=== PATIENT | male | born 1950 | race Caucasian/White ===

== ENCOUNTER 2018-11-13 16:00 | Emergency (ER) | payer OTHER, BC ==
[2018-11-13] MEDS ORDERED: Sodium Chloride 0.9% 1000 ML 1,000 ML IV STA (16:26)
[2018-11-13] MEDS ORDERED: Sodium Chloride 0.9% 1000 ML 1,000 ML ONE (16:30)
--- NOTE | 2018-11-13 16:31 | ERPHSYRPT ---
- History of Present Illness Time Seen by Provider: 11/13/18 16:28 Source: patient Exam Limitations: no limitations Physician History: This is a 68-year-old white male with history of arthritis, kidney stones Patient states that he had a strep infection approximately one week ago he states it took some time for a get antibiotics going. He states that yesterday he had a dark yellow urine today he is having a dark purple urine with blood in his urine. He has some mild pain in his posterior kidneys described as a dull ache. He denies any injury. He has not had any fevers. Past medical history includes arthritis, kidney stones Past surgical history includes hernia repair, bilateral knee arthroscopic, bilateral shoulder surgery, right hand and elbow surgery. Timing/Duration: yesterday Severity: moderate Modifying Factors: Improves With: nothing Associated Symptoms: other (hematuria and bilateral flank pain), No nausea, No vomiting, No abdominal pain, No shortness of breath, No heartburn, No diaphoresis, No cough, No chills, No chest pain, No fever, No headaches, No loss of appetite, No malaise, No rash, No syncope, No seizure, No weakness Allergies/Adverse Reactions: No Known Drug Allergies Allergy (Unverified 10/23/12 21:23) Home Medications: No Home Meds 10/23/12 [History] Hx Tetanus, Diphtheria Vaccination/Date Given: No (PT UNSURE) Hx Influenza Vaccination/Date Given: Yes (2010) Hx Pneumococcal Vaccination/Date Given: No - Review of Systems Constitutional: No Fever, No Chills Eyes: No Symptoms Ears, Nose, & Throat: No Symptoms Respiratory: No Cough, No Dyspnea Cardiac: No Chest Pain, No Edema, No Syncope Abdominal/Gastrointestinal: No Abdominal Pain, No Nausea, No Vomiting, No Diarrhea Genitourinary Symptoms: Hematuria, Flank Pain (Bilateral flank pain), No Dysuria , No Frequency, No Hesitancy, No Incontinence, No Urgency, No Urinary Retention , No Testicle Pain, No Penile Discharge Musculoskeletal: No Back Pain, No Neck Pain Skin: No Symptoms, No Rash Neurological: No Dizziness, No Focal Weakness, No Sensory Changes Psychological: No Symptoms Endocrine: No Symptoms All Other Systems: Reviewed and Negative - Past Medical History Pertinent Past Medical History: Yes Musculoskeletal History: Arthritis - Past Surgical History Past Surgical History: Yes Gastrointestinal: Hernia Repair Musculoskeletal: Orthopedic Surgery Other Surgical History: SHOULDER, BILATERAL KNEES - Social History Smoking Status: Never smoker Exposure to second hand smoke: No Drug Use: none Patient Lives Alone: No - Nursing Vital Signs Nursing Vital Signs: Initial Vital Signs Temperature 98.2 F 11/13/18 16:09 Pulse Rate 84 11/13/18 16:09 Respiratory Rate 18 11/13/18 16:09 Blood Pressure 158/80 11/13/18 16:09 O2 Sat by Pulse Oximetry 96 11/13/18 16:09 Pain Scale Pain Intensity 0 - Physical Exam General Appearance: no apparent distress, alert Eye Exam: PERRL/EOMI, eyes nml inspection Ears, Nose, Throat Exam: normal ENT inspection, TMs normal, pharynx normal, moist mucous membranes Neck Exam: normal inspection, non-tender, supple, full range of motion Respiratory Exam: normal breath sounds, lungs clear, No respiratory distress Cardiovascular Exam: regular rate/rhythm, normal heart sounds, normal peripheral pulses Gastrointestinal/Abdomen Exam: soft, normal bowel sounds, No tenderness, No mass Back Exam: CVA tenderness (mild bilateral flank tenderness) Extremity Exam: normal inspection, normal range of motion, pelvis stable Neurologic Exam: alert, oriented x 3, cooperative, 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 Stable small hiatal hernia . Small fatty umbilical hernia. And enlarged prostate. Remaining abdomen/pelvis negative.) Ordered Tests: Active Orders 24 hr Category Date Time Status IV Insertion STAT Care 11/13/18 16:20 Active ABDOMEN AND PELVIS W/0 CONTRAS [CT] Stat Exams 11/13/18 16:36 Taken CBC W DIFF Stat Lab 11/13/18 16:30 Completed CMP Stat Lab 11/13/18 16:30 Completed CULTURE,URINE Stat Lab 11/13/18 17:08 Received Manual Differential NC Stat Lab 11/13/18 16:30 Completed PROTIME WITH INR Stat Lab 11/13/18 16:30 Completed PTT Stat Lab 11/13/18 16:30 Completed UA W/RFX UR CULTURE Stat Lab 11/13/18 17:08 Completed Medication Summary Discontinued Medications Generic Name Dose Route Start Last Admin Trade Name Molly PRN Reason Stop Dose Admin Sodium Chloride 1,000 mls @ 999 mls/hr 11/13/18 16:26 11/13/18 16:34 Sodium Chloride 0.9% 1000 Ml IV 11/13/18 17:26 999 mls/hr .Q1H1M STA Administration Sodium Chloride Confirm 11/13/18 16:30 Sodium Chloride 0.9% 1000 Ml Administered 11/13/18 16:31 Dose 1,000 mls @ ud .ROUTE .STK-MED ONE Lab/Rad Data: Laboratory Result Diagrams 11/13/18 16:30 11/13/18 16:30 Laboratory Results 11/13/18 11/13/18 11/13/18 Range/Units 17:08 16:45 16:30 WBC (4.0-10.5) K/mm3 RBC (4.1-5.6) M/mm3 Hgb (12.5-18.0) gm/dl Hct (42-50) % MCV (78-100) fl MCH (26-32) pg MCHC (32-36) g/dl RDW (11.5-14.0) % Plt Count (150-450) K/mm3 MPV (6-9.5) fl Segmented Neutrophils (36.-66.) % Band Neutrophils (0.0-2.0) % Lymphocytes (Manual) (24-44) % Monocytes (Manual) (0.0-12.0) % Platelet Estimate (NORMAL) RBC Morphology PT 12.9 H (8.83-12.87) SECONDS INR 1.11 (0.8-3.0) APTT 25.8 (24.1-36.1) SECONDS Sodium (137-145) mmol/L Potassium (3.5-5.1) mmol/L Chloride (98-107) mmol/L Carbon Dioxide (22-30) mmol/L Anion Gap (5-15) MEQ/L BUN (9-20) mg/dL Creatinine (0.66-1.25) mg/dL Estimated GFR ML/MIN Glucose (74-106) mg/dL Calcium (8.4-10.2) mg/dL Total Bilirubin (0.2-1.3) mg/dL AST (17-59) U/L ALT (0-50) U/L Alkaline Phosphatase (38-126) U/L Serum Total Protein (6.3-8.2) g/dL Albumin (3.5-5.0) g/dL Urine Color YELLOW (YELLOW) Urine Appearance CLEAR (CLEAR) Urine pH 7.0 (5-6) Ur Specific [place] 1.009 (1.005-1.025) Urine Protein 30 (Negative) Urine Ketones NEGATIVE (NEGATIVE) Urine Blood LARGE (0-5) Jose G/ul Urine Nitrite NEGATIVE (NEGATIVE) Urine Bilirubin NEGATIVE (NEGATIVE) Urine Urobilinogen NEGATIVE (0-1) mg/dL Ur Leukocyte Esterase NEGATIVE (NEGATIVE) Urine WBC (Auto) 26-50 (0-5) /HPF Urine RBC (Auto) >101 (0-2) /HPF U Epithel Cells (Auto) NONE (FEW) /HPF Urine Bacteria (Auto) RARE (NEGATIVE) /HPF Urine Culture Reflexed YES (NO) Urine Glucose NEGATIVE (NEGATIVE) mg/dL Group A Strep Antibody NEGATIVE (NEGATIVE) 11/13/18 11/13/18 Range/Units 16:30 16:30 WBC 8.8 (4.0-10.5) K/mm3 RBC 4.22 (4.1-5.6) M/mm3 Hgb 13.2 (12.5-18.0) gm/dl Hct 40.7 L (42-50) % MCV 96.4 (78-100) fl MCH 31.3 (26-32) pg MCHC 32.4 (32-36) g/dl RDW 13.3 (11.5-14.0) % Plt Count 264 (150-450) K/mm3 MPV 9.9 H (6-9.5) fl Segmented Neutrophils 59 (36.-66.) % Band Neutrophils 9 H (0.0-2.0) % Lymphocytes (Manual) 28 (24-44) % Monocytes (Manual) 4 (0.0-12.0) % Platelet Estimate NORMAL (NORMAL) RBC Morphology NORMAL PT (8.83-12.87) SECONDS INR (0.8-3.0) APTT (24.1-36.1) SECONDS Sodium 145 (137-145) mmol/L Potassium 4.3 (3.5-5.1) mmol/L Chloride 103 (98-107) mmol/L Carbon Dioxide 32 H (22-30) mmol/L Anion Gap 14.1 (5-15) MEQ/L BUN 17 (9-20) mg/dL Creatinine 1.16 (0.66-1.25) mg/dL Estimated GFR > 60.0 ML/MIN Glucose 113 H (74-106) mg/dL Calcium 9.1 (8.4-10.2) mg/dL Total Bilirubin 0.50 (0.2-1.3) mg/dL AST 25 (17-59) U/L ALT 23 (0-50) U/L Alkaline Phosphatase 84 (38-126) U/L Serum Total Protein 7.9 (6.3-8.2) g/dL Albumin 4.1 (3.5-5.0) g/dL Urine Color (YELLOW) Urine Appearance (CLEAR) Urine pH (5-6) Ur Specific [place] (1.005-1.025) Urine Protein (Negative) Urine Ketones (NEGATIVE) Urine Blood (0-5) Jose G/ul Urine Nitrite (NEGATIVE) Urine Bilirubin (NEGATIVE) Urine Urobilinogen (0-1) mg/dL Ur Leukocyte Esterase (NEGATIVE) Urine WBC (Auto) (0-5) /HPF Urine RBC (Auto) (0-2) /HPF U Epithel Cells (Auto) (FEW) /HPF Urine Bacteria (Auto) (NEGATIVE) /HPF Urine Culture Reflexed (NO) Urine Glucose (NEGATIVE) mg/dL Group A Strep Antibody (NEGATIVE) - Progress Progress: improved Progress Note: 11/13/18 17:39 68-year-old white male with history of arthritis, kidney stones Patient states he had strep a week ago. He states that yesterday he noticed blood in his urine. He states he has some bilateral flank pain no nausea no vomiting. He has had some dysuria. Patient with a CT remarkable for mild diffuse fecal stasis, stable small hiatal hernia, small fatty umbilical hernia, and enlarged prostate remaining abdomen/ pelvis is negative patient's group a strep is negative Patient's CBC white blood cell 8.8 hemoglobin 13.2 hematocrit 40.7 platelets 264 Patient's chemistries sodium 145 potassium 4.3 chloride 103 bicarbonate 32 BUN 17 creatinine 1.16 glucose 113 GFR is greater than 60 Patient's urine specific gravity 1.009 pH 7.0 protein 30 (1+) Large amount of blood patient's urine is yellow Patient with 26-50 white cells per high-power field and greater than 101 red cells per high-power field. Impression hematuria UTI. Plan. Bactrim DS one orally twice a day for 10 days. Plenty of fluids. Tylenol as needed for pain. Follow-up with patient's family doctor he states he has an appointment on 19 November, sooner if problems or worsening of condition. Return for acute distress or severe symptoms or for any problems. - Departure Time of Disposition: 17:42 Departure Disposition: Home Clinical Impression: history of recent strep infection UTI (urinary tract infection) Qualifiers: Urinary tract infection type: site unspecified Hematuria presence: with hematuria Qualified Code(s): N39.0 - Urinary tract infection, site not specified ; R31.9 - Hematuria, unspecified Condition: Fair Critical Care Time: No Referrals: BRAEDEN ROSENBAUM [NON-STAFF PHY W/O PRIVILEGES] - Instructions: Blood in the Urine (Hematuria) in Adults Additional Instructions: Return home. Plenty of fluids. Tylenol every 4 hours as needed for pain. Bactrim DS as prescribed. Follow-up with your family doctor as previously arranged sooner if problems. Return for acute distress, severe symptoms, or for any problems. Prescriptions: Smz/Tmp Ds Tablet [Bactrim Ds Tablet] 1 tab PO Q12H #20 tablet
[2018-11-13 16:43] LABS: Hematocrit 40.7 % (42-50); Hemoglobin 13.2 gm/dl (12.5-18.0); Mean Cell Volume 96.4 fl (78-100); Mean Corpuscular Hemoglobin 31.3 pg (26-32); Mean Corpuscular Hgb Concent. 32.4 g/dl (32-36); Mean Platelet Volume 9.9 fl (6-9.5); Platelet Count 264 K/mm3 (150-450); Red Blood Count 4.22 M/mm3 (4.1-5.6); Red Cell Distribution Width 13.3 % (11.5-14.0); White Blood Count 8.8 K/mm3 (4.0-10.5)
[2018-11-13 17:00] LABS: INR 1.11 (0.8-3.0); PROTIME 12.9 SECONDS (8.83-12.87)
[2018-11-13 17:02] LABS: PTT 25.8 SECONDS (24.1-36.1)
[2018-11-13 17:05] LABS: ALBUMIN 4.1 g/dL (3.5-5.0); ALKALINE PHOSPHATASE 84 U/L (38-126); ANION GAP 14.1 MEQ/L (5-15); BLOOD UREA NITROGEN 17 mg/dL (9-20); CHLORIDE 103 mmol/L (98-107); Calcium 9.1 mg/dL (8.4-10.2); Carbon Dioxide 32 mmol/L (22-30); Creatinine 1 1.16 mg/dL (0.66-1.25); Glucose 113 mg/dL (74-106); Potassium 4.3 mmol/L (3.5-5.1); SGOT/AST 25 U/L (17-59); SGPT/ALT 23 U/L (0-50); SODIUM 145 mmol/L (137-145); Total Protein 7.9 g/dL (6.3-8.2)
[2018-11-13 17:06] LABS: BAND 9 % (0.0-2.0); Lymphocytes 28 % (24-44); Monocyte 4 % (0.0-12.0); Neutrophils 59 % (36.-66.); Total Cells Counted 100
[2018-11-13 17:07] LABS: Platelet Estimate NORMAL (NORMAL)
[2018-11-13 17:24] LABS: Appearance CLEAR (CLEAR); Bacteria RARE /HPF (NEGATIVE); Bilirubin NEGATIVE (NEGATIVE); Blood LARGE Ery/ul (0-5); Glucose NEGATIVE (NEGATIVE); Ketones NEGATIVE (NEGATIVE); Leukocyte Esterase NEGATIVE (NEGATIVE); Nitrite NEGATIVE (NEGATIVE); Protein,Urine Dip 30 (Negative); Specific Gravity 1.009 (1.005-1.025); Urobilinogen NEGATIVE mg/dL (0-1); WBC 26-50 /HPF (0-5)
[2018-11-13 17:25] LABS: RBC >101 /HPF (0-2)
[2018-11-13 17:56] VITALS: BP 113/69; PULSE 72; O2SAT 98
--- NOTE | 2018-11-14 09:03 | XRAY ---
Indication: Pelvic pain. Hematuria. Burning with urination. Multiple contiguous axial images obtained through the abdomen and pelvis without contrast as ordered. Comparison: October 23, 2012. Lung bases demonstrate stable tiny left base calcified granuloma. No infiltrate or effusion. Heart is not enlarged. Stable small hiatal hernia. Noncontrasted stomach and bowel loops appear nonobstructed. Mild diffuse scattered colonic fecal debris throughout including rectum. No free fluid/air. Gallbladder contracted without gallstones. Stable enlarged prostate gland. Remaining liver, gallbladder, pancreas, spleen, adrenal glands, kidneys, ureters, and bladder appear unremarkable for noncontrast exam. Mild scattered aortoiliac calcifications without AAA. Osseous structures intact with progressive worsening moderate multilevel thoracolumbar degenerative spondylosis. Stable minimal grade 1 L4 spondylolisthesis. Stable small fatty umbilical hernia. Impression: 1. Mild fecal stasis without obstruction. 2. Stable small hiatal hernia, enlarged prostate gland, small fatty umbilical hernia, and grade 1 L4 spondylolisthesis. 3. No new or acute intra-abdominal/pelvic abnormalities on this noncontrast exam. CTDI 27.56
== END 2018-11-13 18:00 | disposition home or self-care (01) ==
LOC: ED 16:00
DX: R31.9 Hematuria, unspecified (principal); N39.0 Urinary tract infection, site not specified; M19.90 Unspecified osteoarthritis, unspecified site; Z87.442 Personal history of urinary calculi
CPT/HCPCS: 36000; 36415; 74176; 80053; 81001; 85025; 85610; 85730; 87077; 87086; 87186; 87651; 96360; 99284

== ENCOUNTER 2022-08-17 14:52 | Emergency (ER) | payer OTHER ==
--- NOTE | 2022-08-17 14:53 | ERPHSYRPT ---
- History of Present Illness Time Seen by Provider: 08/17/22 14:53 Source: patient Exam Limitations: no limitations Physician History: This is an active 71-year-old white male who approximately 8:00 this morning had relatively sudden onset of right flank pain that has worsened and intensified throughout the day. In the distant past he has had a ureteral stone and this feels similar. He has no chest pain. He has no shortness of breath. He said no nausea vomiting or diarrhea. He said no fever. He denies cough. He did notice that his urine is dark. He does have some prostate issues. He did not fall or injure his back acutely. Timing/Duration: today Method of Injury: other (No injury) Quality: sharp, stabbing Severity of Pain-Max: moderate Severity of Pain-Current: moderate Associated Symptoms: lower back pain, No urinary incontinence, No loss of bowel control, No constipation, No problems urinating, No numbness in legs/feet Previous symptoms: same symptoms as today (Distant past), no recent treatment Allergies/Adverse Reactions: No Known Drug Allergies Allergy (Verified 11/13/18 17:45) Hx Tetanus, Diphtheria Vaccination/Date Given: No (PT UNSURE) Hx Influenza Vaccination/Date Given: Yes (2010) Hx Pneumococcal Vaccination/Date Given: No Travel Risk - International Travel Have you traveled outside of the country in past 3 weeks: No - Coronavirus Screening Are you exhibiting any of the following symptoms?: No Close contact with a COVID-19 positive Pt in past 14-21 Days: No - Review of Systems Constitutional: No Symptoms Eyes: No Symptoms Ears, Nose, & Throat: No Symptoms Respiratory: No Symptoms Cardiac: No Symptoms Abdominal/Gastrointestinal: No Symptoms Genitourinary Symptoms: Hematuria, Flank Pain (Right flank pain), No Dysuria Musculoskeletal: No Symptoms Skin: No Symptoms Neurological: No Symptoms Psychological: No Symptoms Endocrine: No Symptoms Hematologic/Lymphatic: No Symptoms Immunological/Allergic: No Symptoms All Other Systems: Reviewed and Negative - Past Medical History Pertinent Past Medical History: Yes Musculoskeletal History: Arthritis Male Reproductive Disorders: Prostate Problems - Past Surgical History Past Surgical History: Yes Gastrointestinal: Hernia Repair Musculoskeletal: Orthopedic Surgery Other Surgical History: SHOULDER, BILATERAL KNEES - Social History Smoking Status: Never smoker Exposure to second hand smoke: No Drug Use: none Patient Lives Alone: No - Nursing Vital Signs Nursing Vital Signs: Initial Vital Signs Temperature 97.6 F 08/17/22 14:56 Pulse Rate 62 08/17/22 14:56 Respiratory Rate 20 08/17/22 14:56 Blood Pressure 173/83 08/17/22 14:56 O2 Sat by Pulse Oximetry 98 08/17/22 14:56 Pain Scale Pain Intensity 2 - Physical Exam General Appearance: mild distress, alert, anxiety Eye Exam: PERRL/EOMI, eyes nml inspection Ears, Nose, Throat Exam: normal ENT inspection, moist mucous membranes Neck Exam: normal inspection, non-tender, supple, full range of motion Respiratory Exam: normal breath sounds, lungs clear, airway intact, No chest tenderness, No respiratory distress Cardiovascular Exam: regular rate/rhythm, normal heart sounds, normal peripheral pulses Gastrointestinal Exam: soft, normal bowel sounds, No tenderness Rectal Exam: not done Back Exam: normal inspection, normal range of motion, CVA tenderness (Right), No vertebral tenderness Extremity Exam: normal inspection, normal range of motion, pelvis stable Neurologic Exam: alert, oriented x 3, cooperative, 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, normal mood/affect, nml cerebellar function, nml station & gait, sensation nml Skin Exam: normal color, warm, dry Lymphatic Exam: No adenopathy SpO2 Interpretation: normal O2 Delivery: Room Air - Course Nursing assessment & vital signs reviewed: Yes Ordered Tests: Active Orders 24 hr Category Date Time Status IV Insertion STAT Care 08/17/22 15:07 Active ABDOMEN AND PELVIS W/0 CONTRAS [CT] Stat Exams 08/17/22 15:07 Taken AMYLASE Stat Lab 08/17/22 15:07 Completed CBC W DIFF Stat Lab 08/17/22 15:07 Completed CMP Stat Lab 08/17/22 15:07 Completed CULTURE,URINE Stat Lab 08/17/22 15:08 Received LIPASE Stat Lab 08/17/22 15:07 Completed UA W/RFX CULTURE Stat Lab 08/17/22 15:08 Completed Medication Summary Discontinued Medications Generic Name Dose Route Start Last Admin Trade Name Freq PRN Reason Stop Dose Admin Hydromorphone HCl 1 mg 08/17/22 15:07 08/17/22 15:27 Hydromorphone 1 Mg/1ml Inj 1 Mg/Ml Syringe IV 08/17/22 15:08 1 mg STAT ONE Administration Hydromorphone HCl Confirm 08/17/22 15:21 Hydromorphone 1 Mg/1ml Inj 1 Mg/Ml Syringe Administered 08/17/22: Dose 1 mg .ROUTE .STK-MED ONE Sodium Chloride 1,000 mls @ 999 mls/hr 08/17/22 15:07 08/17/22 16:51 Sodium Chloride 0.9% 1000 Ml IV 08/17/22 16:07 Infused .Q1H1M STA Infusion Sodium Chloride Confirm 08/17/22 15:21 Sodium Chloride 0.9% 1000 Ml Administered 08/17/22 15:22 Dose 1,000 mls @ ud .ROUTE .STK-MED ONE Ketorolac Tromethamine 30 mg 08/17/22 15:07 08/17/22 15:26 Ketorolac Tromethamine 30 Mg/Ml Inj IV 08/17/22 15:08 30 mg STAT ONE Administration Ketorolac Tromethamine Confirm 08/17/22 15:20 Ketorolac Tromethamine 30 Mg/Ml Inj Administered 08/17/22 15:21 Dose 30 mg .ROUTE .STK-MED ONE Ondansetron HCl 4 mg 08/17/22 15:07 08/17/22 15:26 Ondansetron Hcl 4 Mg/2 Ml Vial IV 08/17/22 15:08 4 mg STAT ONE Administration Ondansetron HCl Confirm 08/17/22 15:20 Ondansetron Hcl 4 Mg/2 Ml Vial Administered 08/17/22 15:21 Dose 4 mg .ROUTE .STK-MED ONE Lab/Rad Data: Laboratory Result Diagrams 08/17/22 15:07 08/17/22 15:07 Laboratory Results 08/17/22 08/17/22 08/17/22 Range/Units 15:08 15:07 15:07 WBC 9.2 (4.0-10.5) x10^3/uL RBC 4.50 (4.1-5.6) x10^6/uL Hgb 14.1 (12.5-18.0) g/dL Hct 44.2 (42-50) % MCV 98.2 (78-100) fL MCH 31.3 (26-32) pg MCHC 31.9 L (32-36) g/dL RDW 12.5 (11.5-14.0) % Plt Count 232 (150-450) x10^3/uL MPV 10.8 (7.5-11.0) fL Gran % 85.9 H (36.0-66.0) % Immature Gran % (Auto) 0.2 (0.00-0.4) % Nucleat RBC Rel Count 0.0 (0.00-0.1) % Eos # (Auto) 0.02 (0-0.5) x10^3/uL Immature Gran # (Auto) 0.02 (0.00-0.03) x10^3u/L Absolute Lymphs (auto) 0.76 L (1.0-4.6) x10^3/uL Absolute Monos (auto) 0.48 (0.0-1.3) x10^3/uL Absolute Nucleated RBC 0.00 (0.00-0.01) x10^3u/L Lymphocytes % 8.2 L (24.0-44.0) % Monocytes % 5.2 (0.0-12.0) % Eosinophils % 0.2 (0.00-5.0) % Basophils % 0.3 (0.0-0.4) % Absolute Granulocytes 7.93 H (1.4-6.9) x10^3/uL Basophils # 0.03 (0-0.4) x10^3/uL Sodium 142 (137-145) mmol/L Potassium 3.9 (3.5-5.1) mmol/L Chloride 109 H (98-107) mmol/L Carbon Dioxide 29 (22-30) mmol/L Anion Gap 7.6 (5-15) MEQ/L BUN 16 (9-20) mg/dL Creatinine 0.79 (0.66-1.25) mg/dL Estimated GFR > 60.0 ML/MIN Glucose 160 H (74-106) mg/dL Calcium 8.7 (8.4-10.2) mg/dL Total Bilirubin 0.50 (0.2-1.3) mg/dL AST 25 (17-59) U/L ALT 19 (0-50) U/L Alkaline Phosphatase 103 (38-126) U/L Serum Total Protein 6.9 (6.3-8.2) g/dL Albumin 4.1 (3.5-5.0) g/dL Amylase 59 (30-110) U/L Lipase 42 (23-300) U/L Urinalys Dipstick Clnc MAIN LAB Urine Color BROWN (YELLOW) Urine Appearance CLOUDY (CLEAR) Urine pH 5.5 (5-6) Ur Specific [place] >=1.030 (1.005-1.025) POC Urine Protein Conf 100 (Negative) Urine Ketones NEGATIVE (NEGATIVE) Urine Nitrite NEGATIVE (NEGATIVE) Urine Bilirubin SMALL (NEGATIVE) Urine Urobilinogen 1 (0-1) mg/dL Urine Leukocytes NEGATIVE (NEGATIVE) Urine WBC (Auto) 0-2 (0-5) /HPF Urine RBC (Auto) >101 (0-2) /HPF U Epithel Cells (Auto) NONE (FEW) /HPF Urine Bacteria (Auto) FEW (NEGATIVE) /HPF Urine RBC LARGE (0-5) Jose G/ul Urine Mucus (Auto) MANY (NEGATIVE) /HPF Ur Culture Indicated? YES Urine Glucose NEGATIVE (NEGATIVE) mg/dL - Progress Progress: improved, pain not gone completely Progress Note: 08/17/22 17:17 CAT scan of the abdomen pelvis without contrast shows a 3 mm ureteral stone at the right ureterovesical junction with mild to moderate hydronephrosis. We will provide the patient with to take home [place] 5/325 medications. Patient will not make it to his pharmacy tonight to fill his prescription. Counseled pt/family regarding: lab results, diagnosis, need for follow-up, rad results - Departure Departure Disposition: Home Clinical Impression: Right distal ureteral calculus Condition: Stable Critical Care Time: No Referrals: ROMAN PEPPER MD [Primary Care Provider] - Follow up/PCP as directed Additional Instructions: Drink plenty of fluids. Take ibuprofen 600 mg orally 3 times a day with food for the next 5 days. Prescriptions: Hydrocodone/APAP 5/325 [[place] 5/325 mg] 1 each PO Q8H PRN PRN #6 tablet MDD 3 PRN Reason: Pain
[2022-08-17 15:02] VITALS: O2SAT 98
[2022-08-17] MEDS ORDERED: Zofran 4 MG/2 ML VIAL IV ONE (15:07)
[2022-08-17] MEDS ORDERED: Hydromorphone 1 mg/ml Injection IV ONE (15:07)
[2022-08-17] MEDS ORDERED: Sodium Chloride 0.9% 1000 ML 1,000 ML IV STA (15:07)
[2022-08-17] MEDS ORDERED: TORAdol 30 mg Injection IV ONE (15:07)
[2022-08-17] MEDS ORDERED: Zofran 4 MG/2 ML VIAL ONE (15:20)
[2022-08-17] MEDS ORDERED: TORAdol 30 mg Injection ONE (15:20)
[2022-08-17] MEDS ORDERED: Sodium Chloride 0.9% 1000 ML 1,000 ML ONE (15:21)
[2022-08-17] MEDS ORDERED: Hydromorphone 1 mg/ml Injection ONE (15:21)
[2022-08-17 15:22] LABS: Absolute Neutrophil Ct (ANC) 7.93 x10^3/uL (1.4-6.9); Basophil (Absolute #) 0.03 x10^3/uL (0-0.4); Eosinophil % 0.2 % (0.00-5.0); Eosinophil (Absolute #) 0.02 x10^3/uL (0-0.5); Hematocrit 44.2 % (42-50); Hemoglobin 14.1 g/dL (12.5-18.0); Lymphocyte (Absolute #) 0.76 x10^3/uL (1.0-4.6); Lymphocytes % 8.2 % (24.0-44.0); Mean Cell Volume 98.2 fL (78-100); Mean Corpuscular Hemoglobin 31.3 pg (26-32); Mean Corpuscular Hgb Concent. 31.9 g/dL (32-36); Mean Platelet Volume 10.8 fL (7.5-11.0); Monocyte (Absolute #) 0.48 x10^3/uL (0.0-1.3); Monocytes % 5.2 % (0.0-12.0); Neutrophil % 85.9 % (36.0-66.0); Platelet Count 232 x10^3/uL (150-450); Red Cell Distribution Width 12.5 % (11.5-14.0); White Blood Count 9.2 x10^3/uL (4.0-10.5)
[2022-08-17 15:41] LABS: Appearance CLOUDY (CLEAR); Bacteria FEW /HPF (NEGATIVE); Bilirubin SMALL (NEGATIVE); Glucose NEGATIVE (NEGATIVE); Ketones NEGATIVE (NEGATIVE); Mucus MANY /HPF (NEGATIVE); WBC 0-2 /HPF (0-5)
[2022-08-17 15:42] LABS: Dipstick done @ ? MAIN LAB; Nitrite NEGATIVE (NEGATIVE); Ph 5.5 (5-6); Protein,Urine Dip 100 (Negative); RBC LARGE Ery/ul (0-5); Specific Gravity >=1.030 (1.005-1.025); Urobilinogen 1 mg/dL (0-1)
[2022-08-17 15:47] LABS: RBC >101 /HPF (0-2)
[2022-08-17 15:49] LABS: Urine Cultured Indicated? YES
[2022-08-17 16:18] LABS: ALBUMIN 4.1 g/dL (3.5-5.0); ALKALINE PHOSPHATASE 103 U/L (38-126); AMYLASE 59 U/L (30-110); ANION GAP 7.6 MEQ/L (5-15); BLOOD UREA NITROGEN 16 mg/dL (9-20); CHLORIDE 109 mmol/L (98-107); Calcium 8.7 mg/dL (8.4-10.2); Carbon Dioxide 29 mmol/L (22-30); Creatinine 1 0.79 mg/dL (0.66-1.25); EST GLOMERULAR FILTRATION RATE > 60.0 ML/MIN; Glucose 160 mg/dL (74-106); LIPASE 42 U/L (23-300); Potassium 3.9 mmol/L (3.5-5.1); SGOT/AST 25 U/L (17-59); SGPT/ALT 19 U/L (0-50); SODIUM 142 mmol/L (137-145); Total Protein 6.9 g/dL (6.3-8.2)
[2022-08-17 16:50] VITALS: BP 152/74; PULSE 67
[2022-08-17] MEDS ORDERED: NORCO 5/325 MG PO ONE (17:21)
[2022-08-17] MEDS ORDERED: NORCO 5/325 MG ONE (17:26)
--- NOTE | 2022-08-17 20:33 | XRAY ---
Indication: Right flank pain and hematuria. Multiple contiguous axial images obtained through the abdomen and pelvis without contrast using renal stone protocol. Comparison: November 13, 2018. Lung bases demonstrates minimal left base fibrosis/scarring with stable tiny calcified granuloma. Heart not enlarged. Enlarging small hiatal hernia. New 3 mm right UVJ calculus. Proximal right ureter is mildly prominent along with mild hydronephrosis and perinephric stranding consistent with obstructive uropathy. Noncontrast stomach and bowel loops nonobstructed. No free fluid/air. Stable subcentimeter right lobe hepatic cyst. Remaining liver, gallbladder, pancreas, spleen, adrenal glands, left kidney, left ureter, and bladder are unremarkable for noncontrast exam. Mild aortoiliac calcifications without AAA. Osseous structures intact again with osteopenia, moderate multilevel thoracolumbar degenerative spondylosis, mild levoscoliosis, and mild bilateral hip degenerative arthropathy. Impression: 1. New 3 mm right UVJ calculus with obstructive uropathy as detailed. 2. Enlarging small hiatal hernia. 3. Again chronic findings including left lung base calcified granuloma, tiny hepatic cyst, arteriosclerotic disease and chronic bony findings. Comment: Preliminary interpretation made by [facility]. No critical discrepancy.
== END 2022-08-17 17:42 | disposition home or self-care (01) ==
LOC: ED 14:52
DX: N13.2 Hydronephrosis with renal and ureteral calculous obstruction (principal); Z87.442 Personal history of urinary calculi; R10.9 Unspecified abdominal pain; Z79.891 Long term (current) use of opiate analgesic
CPT/HCPCS: 36000; 36415; 74176; 80053; 81015; 82150; 83690; 85025; 87086; 96360; 96374; 96375; 99284; J1170; J1885; J2405; A9270-GY

== ENCOUNTER 2023-05-10 11:43 | Emergency (ER) | payer OTHER ==
--- NOTE | 2023-05-10 11:49 | ERPHSYRPT ---
- History of Present Illness Time Seen by Provider: 05/10/23 11:48 Source: patient Exam Limitations: no limitations Physician History: This is a 72-year-old obese white male patient who has a history of ureteral lithiasis in the past and presents with back pain and left flank pain that began approximately 3 to 4 days ago. Patient was seen by a chiropractor yesterday and he underwent therapy which did not resolve his pain. Patient did not suffer any acute fall or trauma. Patient denies chest pain. Patient denies abdominal pain. Patient denies shortness of breath. The pain is significant but is somewhat different than his right-sided ureterolithiasis pain from July 2022. Patient does have a history of some prostate issues and is taking Flomax. Timing/Duration: day(s) (3 to 4 days ago he noticed left flank pain) Method of Injury: other (No fall or acute trauma) Quality: sharp, aching (Lumbar spine and left flank pain) Back Pain Location: lumbar spine, paraspinous muscles (Left side) Severity of Pain-Max: moderate Severity of Pain-Current: moderate Modifying Factors: Improves With: movement Associated Symptoms: lower back pain, muscle spasms (Left side lumbar level), No urinary incontinence, No loss of bowel control, No constipation, No problems urinating, No numbness in legs/feet Previous symptoms: no recent treatment Allergies/Adverse Reactions: No Known Drug Allergies Allergy (Verified 05/10/23 11:49) Home Medications: Ibuprofen 200 mg [Motrin 200 mg] 800 mg PO BID 05/10/23 [History] Tamsulosin HCl 0.4 mg [Flomax 0.4 MG] 1 cap PO DAILY 05/10/23 [History] Hx Tetanus, Diphtheria Vaccination/Date Given: No (PT UNSURE) Hx Influenza Vaccination/Date Given: Yes (2010) Hx Pneumococcal Vaccination/Date Given: No Travel Risk - International Travel Have you traveled outside of the country in past 3 weeks: No - Coronavirus Screening Are you exhibiting any of the following symptoms?: No Close contact with a COVID-19 positive Pt in past 14-21 Days: No - Vaccine Status Have you recieved a Covid-19 vaccination: Yes [employer]: Moderna - Vaccination Dates Date of 2cond Vaccination (if applicable): 2020 - Review of Systems Constitutional: No Symptoms Eyes: No Symptoms Ears, Nose, & Throat: No Symptoms Respiratory: No Symptoms Cardiac: No Symptoms Abdominal/Gastrointestinal: No Symptoms Genitourinary Symptoms: No Symptoms Musculoskeletal: Back Pain, No Fall, No Injury Skin: No Symptoms Neurological: No Symptoms Psychological: No Symptoms Endocrine: No Symptoms Hematologic/Lymphatic: No Symptoms Immunological/Allergic: No Symptoms All Other Systems: Reviewed and Negative - Past Medical History Pertinent Past Medical History: Yes Musculoskeletal History: Arthritis Male Reproductive Disorders: Prostate Problems - Past Surgical History Past Surgical History: Yes Gastrointestinal: Hernia Repair Musculoskeletal: Orthopedic Surgery Other Surgical History: SHOULDER, BILATERAL KNEES - Social History Smoking Status: Never smoker Exposure to second hand smoke: No Drug Use: none Patient Lives Alone: No - Nursing Vital Signs Nursing Vital Signs: Initial Vital Signs Temperature 98.8 F 05/10/23 11:52 Pulse Rate 64 05/10/23 11:52 Respiratory Rate 18 05/10/23 11:52 Blood Pressure 149/67 05/10/23 11:52 O2 Sat by Pulse Oximetry 96 05/10/23 11:52 Pain Scale Pain Intensity 10 - Physical Exam General Appearance: no apparent distress, alert, anxiety, obese Eye Exam: PERRL/EOMI, eyes nml inspection Ears, Nose, Throat Exam: normal ENT inspection, moist mucous membranes Neck Exam: normal inspection, non-tender, supple, full range of motion Respiratory Exam: normal breath sounds, lungs clear, airway intact, No chest tenderness, No respiratory distress Cardiovascular Exam: regular rate/rhythm, normal heart sounds, normal peripheral pulses Gastrointestinal Exam: soft, normal bowel sounds, No tenderness Rectal Exam: not done Back Exam: normal inspection, normal range of motion, CVA tenderness (Left side), No vertebral tenderness Extremity Exam: normal inspection, normal range of motion, pelvis stable Neurologic Exam: alert, oriented x 3, 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, 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, normal mood/affect, nml cerebellar function, nml station & gait, sensation nml Skin Exam: normal color, warm, dry Lymphatic Exam: No adenopathy SpO2 Interpretation: normal O2 Delivery: Room Air - Course Nursing assessment & vital signs reviewed: Yes Ordered Tests: Active Orders 24 hr Category Date Time Status IV Insertion STAT Care 05/10/23 11:58 Active ABDOMEN AND PELVIS W/0 CONTRAS [CT] Stat Exams 05/10/23 11:58 Completed AMYLASE Stat Lab 05/10/23 12:03 Completed CBC W DIFF Stat Lab 05/10/23 12:03 Completed CMP Stat Lab 05/10/23 12:03 Completed LIPASE Stat Lab 05/10/23 12:03 Completed UA W/RFX UR CULTURE Stat Lab 05/10/23 12:03 Completed Medication Summary Discontinued Medications Generic Name Dose Route Start Last Admin Trade Name Molly PRN Reason Stop Dose Admin Hydromorphone HCl 1 mg 05/10/23 11:58 05/10/23 12:14 Hydromorphone 1 Mg/1ml Inj IV 05/10/23 11:59 1 mg STAT ONE Administration Hydromorphone HCl Confirm 05/10/23 12:09 Hydromorphone 1 Mg/1ml Inj Administered 05/10/23 12:10 Dose 1 mg .ROUTE .STK-MED ONE Sodium Chloride 1,000 mls @ 999 mls/hr 05/10/23 11:58 05/10/23 13:23 Sodium Chloride 0.9% 1000 Ml IV 05/10/23 12:58 Infused .Q1H1M STA Infusion Sodium Chloride Confirm 05/10/23 12:09 Sodium Chloride 0.9% 1000 Ml Administered 05/10/23 12:10 Dose 1,000 mls @ ud .ROUTE .STK-MED ONE Ketorolac Tromethamine 30 mg 05/10/23 11:58 05/10/23 12:14 Ketorolac Tromethamine 30 Mg/Ml Inj IV 05/10/23 11:59 30 mg STAT ONE Administration Ketorolac Tromethamine Confirm 05/10/23 12:09 Ketorolac Tromethamine 30 Mg/Ml Inj Administered 05/10/23 12:10 Dose 30 mg .ROUTE .STK-MED ONE Ondansetron HCl 4 mg 05/10/23 11:58 05/10/23 12:12 Ondansetron Hcl 4 Mg/2 Ml Vial IV 05/10/23 11:59 4 mg STAT ONE Administration Ondansetron HCl Confirm 05/10/23 12:09 Ondansetron Hcl 4 Mg/2 Ml Vial Administered 05/10/23 12:10 Dose 4 mg .ROUTE .STK-MED ONE Lab/Rad Data: Laboratory Result Diagrams 05/10/23 12:03 05/10/23 12:03 Laboratory Results 05/10/23 05/10/23 05/10/23 Range/Units 12:03 12:03 12:03 WBC 5.3 (4.0-10.5) x10^3/uL RBC 4.36 (4.1-5.6) x10^6/uL Hgb 13.6 (12.5-18.0) g/dL Hct 42.1 (42-50) % MCV 96.6 (78-100) fL MCH 31.2 (26-32) pg MCHC 32.3 (32-36) g/dL RDW 12.5 (11.5-14.0) % Plt Count 194 (150-450) x10^3/uL MPV 10.2 (7.5-11.0) fL Gran % 58.1 (36.0-66.0) % Immature Gran % (Auto) 0.4 (0.00-0.4) % Nucleat RBC Rel Count 0.0 (0.00-0.1) % Eos # (Auto) 0.06 (0-0.5) x10^3/uL Immature Gran # (Auto) 0.02 (0.00-0.03) x10^3u/L Absolute Lymphs (auto) 1.68 (1.0-4.6) x10^3/uL Absolute Monos (auto) 0.41 (0.0-1.3) x10^3/uL Absolute Nucleated RBC 0.00 (0.00-0.01) x10^3u/L Lymphocytes % 32.0 (24.0-44.0) % Monocytes % 7.8 (0.0-12.0) % Eosinophils % 1.1 (0.00-5.0) % Basophils % 0.6 (0.0-0.4) % Absolute Granulocytes 3.05 (1.4-6.9) x10^3/uL Basophils # 0.03 (0-0.4) x10^3/uL Sodium 140 (137-145) mmol/L Potassium 4.2 (3.5-5.1) mmol/L Chloride 105 (98-107) mmol/L Carbon Dioxide 29 (22-30) mmol/L Anion Gap 10.9 (5-15) MEQ/L BUN 22 H (9-20) mg/dL Creatinine 0.66 (0.66-1.25) mg/dL Estimated GFR > 60.0 ML/MIN Glucose 117 H (74-106) mg/dL Calcium 8.8 (8.4-10.2) mg/dL Total Bilirubin 0.70 (0.2-1.3) mg/dL AST 28 (17-59) U/L ALT 23 (0-50) U/L Alkaline Phosphatase 106 (38-126) U/L Serum Total Protein 7.4 (6.3-8.2) g/dL Albumin 4.0 (3.5-5.0) g/dL Amylase 69 (30-110) U/L Lipase 67 (23-300) U/L Urine Color Yellow (Yellow) Urine Appearance Clear (Clear) Urine pH 7.0 (4.6-8.0) Ur Specific [place] <=1.005 (1.005-1.030) Urine Protein Negative (Negative) Urine Glucose (UA) Negative (Negative) mg/dL Urine Ketones Negative (Negative) Urine Blood Negative (Negative) Urine Nitrite Negative (Negative) Urine Bilirubin Negative (Negative) Urine Urobilinogen 0.2 (0.2) mg/dL Ur Leukocyte Esterase Negative (Negative) U Hyaline Cast (Auto) NONE SEEN (0-2) /LPF Urine Microscopic RBC 0-2 (0-5) /HPF Urine Microscopic WBC 0-2 (0-5) /HPF Ur Epithelial Cells None Seen (None Seen) /HPF Urine Bacteria None Seen (None Seen) /HPF Urine Culture Reflexed NO (NO) - Progress Progress: improved Progress Note: 05/10/23 13:27 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 No other acute intra-abdominal or intrapelvic findings noted. This patient's medical issue is 1 of moderate complexity. Level of complexity and the work-up performed is based on review of the patient's past medical history, review of the patient's medication list, review the patient's drug allergy list, history present illness and physical findings on examination. The work-up includes urinalysis, placement of an intravenous line, infusion of 1 L of normal saline solution, infusion of Toradol 30 mg intravenously, infusion of Dilaudid 1 mg intravenously, infusion of Zofran 4 mg intravenously, CBC, CMP, amylase, lipase level and urinalysis. 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 Counseled pt/family regarding: lab results, diagnosis, need for follow-up, rad results Medical Desision Making - Diagnostic Testing Diagnostic test were ordered, analyzed, and reviewed by me: Yes Radiological Interpretation: Reviewed by me, Teleradiologist Report - Risk of complications Minimal Risk: Minimal risk of morbidity - Departure Departure Disposition: Home Clinical Impression: Mesenteric panniculitis Condition: Stable Critical Care Time: No Additional Instructions: Drink plenty of fluids. Use Tylenol and ibuprofen for pain control. Follow-up with primary care provider for further evaluation and management. Follow-up on 05/12/2023. Continue your other medication as prescribed.
[2023-05-10] MEDS ORDERED: Hydromorphone 1 mg/ml Injection IV ONE (11:58)
[2023-05-10] MEDS ORDERED: Sodium Chloride 0.9% 1000 ML 1,000 ML IV STA (11:58)
[2023-05-10] MEDS ORDERED: Zofran 4 MG/2 ML VIAL IV ONE (11:58)
[2023-05-10] MEDS ORDERED: TORAdol 30 mg Injection IV ONE (11:58)
[2023-05-10] MEDS ORDERED: Zofran 4 MG/2 ML VIAL ONE (12:09)
[2023-05-10] MEDS ORDERED: Hydromorphone 1 mg/ml Injection ONE (12:09)
[2023-05-10] MEDS ORDERED: Sodium Chloride 0.9% 1000 ML 1,000 ML ONE (12:09)
[2023-05-10] MEDS ORDERED: TORAdol 30 mg Injection ONE (12:09)
[2023-05-10 12:17] LABS: Absolute Neutrophil Ct (ANC) 3.05 x10^3/uL (1.4-6.9); BASOPHIL % 0.6 % (0.0-0.4); Basophil (Absolute #) 0.03 x10^3/uL (0-0.4); Eosinophil % 1.1 % (0.00-5.0); Eosinophil (Absolute #) 0.06 x10^3/uL (0-0.5); Hematocrit 42.1 % (42-50); Hemoglobin 13.6 g/dL (12.5-18.0); IMMATURE GRAN # 0.02 x10^3u/L (0.00-0.03); IMMATURE GRAN % 0.4 % (0.00-0.4); Lymphocyte (Absolute #) 1.68 x10^3/uL (1.0-4.6); Mean Cell Volume 96.6 fL (78-100); Mean Corpuscular Hemoglobin 31.2 pg (26-32); Mean Corpuscular Hgb Concent. 32.3 g/dL (32-36); Mean Platelet Volume 10.2 fL (7.5-11.0); Monocyte (Absolute #) 0.41 x10^3/uL (0.0-1.3); Monocytes % 7.8 % (0.0-12.0); Neutrophil % 58.1 % (36.0-66.0); Platelet Count 194 x10^3/uL (150-450); Red Blood Count 4.36 x10^6/uL (4.1-5.6); Red Cell Distribution Width 12.5 % (11.5-14.0); White Blood Count 5.3 x10^3/uL (4.0-10.5)
[2023-05-10 12:26] LABS: ALKALINE PHOSPHATASE 106 U/L (38-126); AMYLASE 69 U/L (30-110); ANION GAP 10.9 MEQ/L (5-15); BLOOD UREA NITROGEN 22 mg/dL (9-20); CHLORIDE 105 mmol/L (98-107); Calcium 8.8 mg/dL (8.4-10.2); Carbon Dioxide 29 mmol/L (22-30); Creatinine 1 0.66 mg/dL (0.66-1.25); EST GLOMERULAR FILTRATION RATE > 60.0 ML/MIN; Glucose 117 mg/dL (74-106); LIPASE 67 U/L (23-300); Potassium 4.2 mmol/L (3.5-5.1); SGOT/AST 28 U/L (17-59); SGPT/ALT 23 U/L (0-50); SODIUM 140 mmol/L (137-145); Total Protein 7.4 g/dL (6.3-8.2)
[2023-05-10 12:38] LABS: ADD URINE CULTURE? NO (NO); Appearance Clear (Clear); Bacteria None Seen /HPF (None Seen); Bilirubin Negative (Negative); Blood Negative (Negative); Epithelial Cells None Seen /HPF (None Seen); Glucose, Urine Negative (Negative); Hyaline Casts NONE SEEN /LPF (0-2); Ketones Negative (Negative); Leukocyte Esterase Negative (Negative); Nitrite Negative (Negative); Protein,Urine Dip Negative (Negative); RBC 0-2 /HPF (0-5); Specific Gravity <=1.005 (1.005-1.030); Urobilinogen 0.2 mg/dL (0.2); WBC 0-2 /HPF (0-5)
[2023-05-10 12:58] VITALS: PULSE 51; O2SAT 98
--- NOTE | 2023-05-10 13:24 | XRAY ---
CLINICAL HISTORY:Left flank/back pain COMPARISON:08/17/2022. TECHNIQUE:Multiplanar CT abdomen and pelvis performed without IV contrast. FINDINGS: The heart appears enlarged with no pericardial effusion. A small hiatus hernia seen is still seen. Lung bases are clear. Interval resolution of right ureterovesical junction calculus and resolution of right hydronephroureter. No hydronephroureter seen on right side. Interval resolution of bilateral perinephric fat stranding. Few phleboli is pelvis are still seen. Small left inguinal hernia is still seen. Both kidneys are of normal size and shape with no stone or back pressure changes. A 2.0 x 2.6 cm simple right renal sinus cyst was noted. No cyst was noted in left kidney. Both ureters are of normal caliber with no intraluminal stone. The urinary bladder is optimally distended with no intraluminal stone. No perinephric or periureteric fat strading noted. Mild fat fuzziness seen in root of mesentery with tiny lymph nodes suggest panniculitis, advise clinical correlation. Liver, pancreas, spleen both adrenal glands and bowel loops are unremarkable in the limitations of unenhanced study. Gall bladder shows no intraluminal stone or acute cholecystitis. No enlarged pelviabdominal lymphadenopathy. No collection or free fluid seen. Mild divarication of the recti is seen. Bones show spondylodegenerative changes in spine. IMPRESSION: 1. Interval resolution of right ureterovesical junction calculus with the resolution of back pressure on right side, resolution of perinephric fat stranding bilaterally. 2. A simple right renal sinus cyst noted. 3. Mild fat stranding in the root of mesentery with small lymph nodes suggesting mesenteric panniculitis. 4. No stone in both kidneys in both ureters or urinary bladder. Electronically Signed by: Chandu Brown MD. 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
[2023-05-10 13:39] VITALS: BP 112/57
== END 2023-05-10 13:47 | disposition home or self-care (01) ==
LOC: ED 11:43
DX: K65.4 Sclerosing mesenteritis (principal); R10.9 Unspecified abdominal pain; M54.9 Dorsalgia, unspecified; Z79.899 Other long term (current) drug therapy
CPT/HCPCS: 36000; 36415; 74176; 80053; 81001; 82150; 83690; 85025; 96374; 96375; 99284; J1170; J1885; J2405

== ENCOUNTER 2024-12-01 12:47 | Emergency (ER) | payer OTHER ==
[2024-12-01 13:28] VITALS: TEMP 98.2
[2024-12-01 13:48] LABS: Absolute Neutrophil Ct (ANC) 2.62 x10^3/uL (1.78-5.38); BASOPHIL % 0.6 % (0.2-1.2); Basophil (Absolute #) 0.03 x10^3/uL (0.01-0.08); Eosinophil % 1.7 % (0.8-7.0); Eosinophil (Absolute #) 0.08 x10^3/uL (0.04-0.54); Hematocrit 39.5 % (40.1-51.0); Hemoglobin 13.3 g/dL (13.7-17.5); IMMATURE GRAN # 0.01 x10^3u/L (0.001-0.031); IMMATURE GRAN % 0.2 % (0.001-0.429); Lymphocyte (Absolute #) 1.59 x10^3/uL (1.32-3.57); Mean Corpuscular Hemoglobin 31.7 pg (25.7-32.2); Mean Corpuscular Hgb Concent. 33.7 g/dL (32.3-36.5); Monocyte (Absolute #) 0.49 x10^3/uL (0.30-0.82); Monocytes % 10.2 % (5.3-12.2); Neutrophil % 54.3 % (34.0-67.9); Platelet Count 184 x10^3/uL (163-337); Red Cell Distribution Width 12.7 % (11.6-14.4); White Blood Count 4.8 x10^3/uL (4.23-9.07)
[2024-12-01] MEDS ORDERED: ANTIVERT 25 MG ONE (13:58)
[2024-12-01] MEDS: ANTIVERT 25 MG PO ONE (13:59)
[2024-12-01 14:16] LABS: ALBUMIN 4.3 g/dL (3.5-5.0); ALKALINE PHOSPHATASE 83 U/L (38-126); ANION GAP 10.3 MEQ/L (5-15); BLOOD UREA NITROGEN 13 mg/dL (9-20); CHLORIDE 105 mmol/L (98-107); Calcium 9.2 mg/dL (8.4-10.2); Carbon Dioxide 29 mmol/L (22-30); Creatinine 1 0.65 mg/dL (0.66-1.25); EST GLOMERULAR FILTRATION RATE 99.5 ML/MIN; Glucose 105 mg/dL (74-106); Potassium 4.3 mmol/L (3.5-5.1); SGOT/AST 35 U/L (17-59); SGPT/ALT 25 U/L (0-50); SODIUM 140 mmol/L (135-145); TROPONIN < 0.012 ng/mL (0.000-0.033)
--- NOTE | 2024-12-01 14:27 | XRAY ---
Indication: Dizziness. Multiple contiguous axial images obtained through the head without contrast. Comparison: None Age-appropriate global atrophy. No acute intracranial hemorrhage, abnormal extra-axial fluid collection, or mass effect. Fourth ventricle is midline without hydrocephalus. Leiva-white matter differentiation preserved. Bony calvarium intact. Visualized paranasal sinuses and mastoid air cells are clear. Impression: No acute intracranial abnormalities.
--- NOTE | 2024-12-01 14:27 | XRAY ---
Indication: Dizziness. Comparison: None Portable chest demonstrates minimal left base subsegmental atelectasis/scarring. Remaining lungs clear. Heart not enlarged for AP portable technique. Bony thorax intact with osteopenia, mild degenerative changes, and prior left shoulder surgery. Impression: Nonacute chest with chronic features.
[2024-12-01 15:31] LABS: Appearance Clear (Clear); Bacteria None Seen /HPF (None Seen); Bilirubin Negative (Negative); Blood Negative (Negative); Epithelial Cells None Seen /HPF (None Seen); Glucose, Urine Negative (Negative); Hyaline Casts NONE SEEN /LPF (0-2); Ketones Negative (Negative); Leukocyte Esterase Negative (Negative); Nitrite Negative (Negative); Protein,Urine Dip Negative (Negative); RBC 0-2 /HPF (0-5); WBC 0-2 /HPF (0-5)
--- NOTE | 2024-12-01 17:59 | ERPHSYRPT ---
- History of Present Illness Source: patient Exam Limitations: no limitations Patient Subjective Stated Complaint: Pt c/o of a sudden onset of dizziness that began last night, pt then went to bed and states that "he doesn't feel right today", some dizziness today Triage Nursing Assessment: Pt brought self to the ER, hypertensive, rates overall chronic pain as 8/10, pulses normal, skin n/w/d, no difficulty breathing, denies N&V, denies LOC, doesn't appear to be in any distress Hx Tetanus, Diphtheria Vaccination/Date Given: No (PT UNSURE) Hx Influenza Vaccination/Date Given: Yes (2010) Hx Pneumococcal Vaccination/Date Given: No - History of Present Illness Time Seen by Provider: 12/01/24 12:52 Physician History: 74-year-old male presented in the ER with complaints of sudden onset dizziness since last night. Patient reports he feels room spinning sensation with some pressure and headache especially the back of his head. Denies being wobbly, altered gait. Does report some visual disturbance, pressure behind his eyes. No numbness tingling or focal weakness reported. No difficulty speech. Denies any upper respiratory symptoms. No chest pain palpitations or shortness of breath. Patient reports his symptoms are getting better but not completely resolved. Denies any loss of consciousness. No history of stroke, not taking any blood thinners. (JOSEPH CARDENAS) Allergies/Adverse Reactions: No Known Drug Allergies Allergy (Verified 12/01/24 13:28) Home Medications: Ibuprofen 200 mg [Motrin 200 mg] 800 mg PO BID 05/10/23 [History] Tamsulosin HCl 0.4 mg [Flomax 0.4 MG] 1 cap PO DAILY 05/10/23 [History] Atorvastatin Calcium 40 mg PO DAILY 12/01/24 [History] Finasteride 5 mg [Proscar 5 MG] 5 mg PO DAILY 12/01/24 [History] Travel Risk - International Travel Have you traveled outside of the country in past 3 weeks: No - Emerging Infectious Disease Are you exhibiting symptoms associated with any current EIDs: No - Review of Systems Constitutional: No Symptoms Eyes: No Symptoms Ears, Nose, & Throat: No Symptoms Respiratory: No Symptoms Cardiac: No Symptoms Abdominal/Gastrointestinal: No Symptoms Genitourinary Symptoms: No Symptoms Musculoskeletal: Arthralgias Skin: No Symptoms Neurological: Dizziness, Headache Psychological: No Symptoms Hematologic/Lymphatic: No Symptoms Immunological/Allergic: No Symptoms - Past Medical History Pertinent Past Medical History: Yes Cardiac History: Coronary Artery Disease Musculoskeletal History: Arthritis GI Medical History: Hernia Male Reproductive Disorders: Prostate Problems Other Medical History: Kidney stones - Past Surgical History Past Surgical History: Yes Gastrointestinal: Hernia Repair Musculoskeletal: Orthopedic Surgery Other Surgical History: SHOULDER, BILATERAL KNEES - Social History Smoking Status: Never smoker Exposure to second hand smoke: No Drug Use: none Patient Lives Alone: No - Social Determinants of Health Will the patient participate in the screening: Yes Do you worry about a steady place to live?: No Do you have any problems with any of the following?: No known problems In the past 12 months,have you had to go without utilities?: No Transportation Issues: No Has anyone in your support network made you feel unsafe?: No Have you or anyone in your house had to go without enough: No - [place] Coma Scale Best Eye Response (Magdalene): (4) open spontaneously Best Verbal Response ([place]): (5) oriented Best Motor Response ([place]): (6) obeys commands [place] Total: 15 - Physical Exam General Appearance: no apparent distress, alert Eye Exam: bilateral eye: normal inspection, PERRL, EOMI Ears, Nose, Throat Exam: normal ENT inspection, TMs normal, pharynx normal, moist mucous membranes Neck Exam: normal inspection, non-tender, supple, full range of motion Respiratory: normal breath sounds, lungs clear Cardiovascular: regular rate/rhythm, normal heart sounds Gastrointestinal: soft, normal bowel sounds, No tenderness Back Exam: normal inspection, normal range of motion Extremity Exam: normal inspection, normal range of motion Mental Status: alert, oriented x 3, cooperative [employer] Exam: normal hearing, normal speech, PERRL Coordination/Gait: normal finger to nose, normal gait, normal cerebellar function, negative Romberg's sign Motor/Sensory: no motor deficit, no sensory deficit, no pronator drift, negative Babinski's sign DTR: bicep (R): 2+, bicep (L): 2+, knee (R): 2+, knee (L): 2+ Skin Exam: normal color SpO2 Interpretation: normal SpO2: 97 O2 Delivery: Room Air - Nursing Vital Signs Nursing Vital Signs: Initial Vital Signs Temperature 98.2 F 12/01/24 13:21 Pulse Rate 63 12/01/24 13:21 Respiratory Rate 14 12/01/24 13:21 Blood Pressure 148/66 12/01/24 13:21 O2 Sat by Pulse Oximetry 95 12/01/24 13:21 Pain Scale Pain Intensity 3 - Course EKG Interpreted by Me: RATE (64), Sinus Rhythm, NORMAL AXIS, Non-specific ST Changes, Other (PACs) Ordered Tests: Active Orders 24 hr Category Date Time Status CHEST 1 VIEW (PORTABLE) Stat Exams 12/01/24 13:35 Completed HEAD WITHOUT CONTRAST [CT] Stat Exams 12/01/24 13:35 Completed CBC W DIFF Stat Lab 12/01/24 13:50 Completed CMP Stat Lab 12/01/24 13:50 Completed Lactic Acid Stat Lab 12/01/24 13:45 Completed MAGNESIUM Stat Lab 12/01/24 13:50 Completed TROPONIN Q3H Lab 12/01/24 17:19 Completed TROPONIN Stat Lab 12/01/24 13:50 Completed UA W/RFX UR CULTURE Stat Lab 12/01/24 15:20 Completed Medication Summary Discontinued Medications Generic Name Dose Route Start Last Admin Trade Name Steveq PRN Reason Stop Dose Admin Meclizine HCl 25 mg 12/01/24 13:42 12/01/24 13:59 Meclizine Hcl 25 Mg Tablet PO 12/01/24 13:43 25 mg STAT ONE Administration Meclizine HCl Confirm 12/01/24 13:58 Meclizine Hcl 25 Mg Tablet Administered 12/01/24 13:59 Dose 25 mg .ROUTE .STK-MED ONE Lab/Rad Data: Laboratory Result Diagrams 12/01/24 13:50 12/01/24 13:50 Laboratory Results 12/01/24 12/01/24 12/01/24 Range/Units 17:19 15:20 13:50 WBC (4.23-9.07) x10^3/uL RBC (4.63-6.08) x10^6/uL Hgb (13.7-17.5) g/dL Hct (40.1-51.0) % MCV (79.0-92.2) fL MCH (25.7-32.2) pg MCHC (32.3-36.5) g/dL RDW (11.6-14.4) % Plt Count (163-337) x10^3/uL MPV (9.4-12.4) fL Gran % (34.0-67.9) % Immature Gran % (Auto) (0.001-0.429) % Nucleat RBC Rel Count (0.00-0.2) % Eos # (Auto) (0.04-0.54) x10^3/uL Immature Gran # (Auto) (0.001-0.031) x10^3u/L Absolute Lymphs (auto) (1.32-3.57) x10^3/uL Absolute Monos (auto) (0.30-0.82) x10^3/uL Absolute Nucleated RBC (0.00-0.012) x10^3u/L Lymphocytes % (21.8-53.1) % Monocytes % (5.3-12.2) % Eosinophils % (0.8-7.0) % Basophils % (0.2-1.2) % Absolute Granulocytes (1.78-5.38) x10^3/uL Basophils # (0.01-0.08) x10^3/uL Sodium 140 (135-145) mmol/L Potassium 4.3 (3.5-5.1) mmol/L Chloride 105 (98-107) mmol/L Carbon Dioxide 29 (22-30) mmol/L Anion Gap 10.3 (5-15) MEQ/L BUN 13 (9-20) mg/dL Creatinine 0.65 L (0.66-1.25) mg/dL Estimated GFR 99.5 ML/MIN Glucose 105 (74-106) mg/dL Lactic Acid (0.4-2.0) Calcium 9.2 (8.4-10.2) mg/dL Magnesium 2.0 (1.6-2.3) mg/dL Total Bilirubin 1.00 (0.2-1.3) mg/dL AST 35 (17-59) U/L ALT 25 (0-50) U/L Alkaline Phosphatase 83 (38-126) U/L Troponin I < 0.012 < 0.012 (0.000-0.033) ng/mL Serum Total Protein 7.0 (6.3-8.2) g/dL Albumin 4.3 (3.5-5.0) g/dL Urine Color Yellow (Yellow) Urine Appearance Clear (Clear) Urine pH 8.0 (4.6-8.0) Ur Specific [place] 1.020 (1.005-1.030) Urine Protein Negative (Negative) Urine Glucose (UA) Negative (Negative) mg/dL Urine Ketones Negative (Negative) Urine Blood Negative (Negative) Urine Nitrite Negative (Negative) Urine Bilirubin Negative (Negative) Urine Urobilinogen 1.0 A (0.2) mg/dL Ur Leukocyte Esterase Negative (Negative) U Hyaline Cast (Auto) NONE SEEN (0-2) /LPF Urine Microscopic RBC 0-2 (0-5) /HPF Urine Microscopic WBC 0-2 (0-5) /HPF Ur Epithelial Cells None Seen (None Seen) /HPF Urine Bacteria None Seen (None Seen) /HPF Urine Culture Reflexed NO (NO) 12/01/24 12/01/24 Range/Units 13:50 13:45 WBC 4.8 (4.23-9.07) x10^3/uL RBC 4.20 L (4.63-6.08) x10^6/uL Hgb 13.3 L (13.7-17.5) g/dL Hct 39.5 L (40.1-51.0) % MCV 94.0 H (79.0-92.2) fL MCH 31.7 (25.7-32.2) pg MCHC 33.7 (32.3-36.5) g/dL RDW 12.7 (11.6-14.4) % Plt Count 184 (163-337) x10^3/uL MPV 11.0 (9.4-12.4) fL Gran % 54.3 (34.0-67.9) % Immature Gran % (Auto) 0.2 (0.001-0.429) % Nucleat RBC Rel Count 0.0 (0.00-0.2) % Eos # (Auto) 0.08 (0.04-0.54) x10^3/uL Immature Gran # (Auto) 0.01 (0.001-0.031) x10^3u/L Absolute Lymphs (auto) 1.59 (1.32-3.57) x10^3/uL Absolute Monos (auto) 0.49 (0.30-0.82) x10^3/uL Absolute Nucleated RBC 0.00 (0.00-0.012) x10^3u/L Lymphocytes % 33.0 (21.8-53.1) % Monocytes % 10.2 (5.3-12.2) % Eosinophils % 1.7 (0.8-7.0) % Basophils % 0.6 (0.2-1.2) % Absolute Granulocytes 2.62 (1.78-5.38) x10^3/uL Basophils # 0.03 (0.01-0.08) x10^3/uL Sodium (135-145) mmol/L Potassium (3.5-5.1) mmol/L Chloride (98-107) mmol/L Carbon Dioxide (22-30) mmol/L Anion Gap (5-15) MEQ/L BUN (9-20) mg/dL Creatinine (0.66-1.25) mg/dL Estimated GFR ML/MIN Glucose (74-106) mg/dL Lactic Acid 1.0 (0.4-2.0) Calcium (8.4-10.2) mg/dL Magnesium (1.6-2.3) mg/dL Total Bilirubin (0.2-1.3) mg/dL AST (17-59) U/L ALT (0-50) U/L Alkaline Phosphatase (38-126) U/L Troponin I (0.000-0.033) ng/mL Serum Total Protein (6.3-8.2) g/dL Albumin (3.5-5.0) g/dL Urine Color (Yellow) Urine Appearance (Clear) Urine pH (4.6-8.0) Ur Specific [place] (1.005-1.030) Urine Protein (Negative) Urine Glucose (UA) (Negative) mg/dL Urine Ketones (Negative) Urine Blood (Negative) Urine Nitrite (Negative) Urine Bilirubin (Negative) Urine Urobilinogen (0.2) mg/dL Ur Leukocyte Esterase (Negative) U Hyaline Cast (Auto) (0-2) /LPF Urine Microscopic RBC (0-5) /HPF Urine Microscopic WBC (0-5) /HPF Ur Epithelial Cells (None Seen) /HPF Urine Bacteria (None Seen) /HPF Urine Culture Reflexed (NO) - Progress Progress: improved Discussed with : Other Counseled pt/family regarding: lab results, diagnosis, need for follow-up, rad results - Progress Progress Note: 12/01/24 18:07 74-year-old is evaluated in the ER for dizziness. Patient reported spinning sensation. He is given meclizine and on reevaluation is asymptomatic. Nonfocal neuroexam. CT head is negative for any acute intracranial findings. Normal white count, fairly unremarkable chemistries. Chest x-ray is negative for any acute cardiopulmonary findings. I have obtain [facility] neurology consult who has evaluated patient and thinks patient would benefit with further evaluation specially with MRI to rule out posterior fossa stroke. Since patient is a [facility], we have called [facility] and patient would be transferred there. I have shared the results of workup with patient and plan of transfer which she understands and agrees. 12/01/24 19:22 Currently transfer is pending, care is transferred to Dr. Naqvi at end of my shift for discussion with [facility] and final disposition. (JOSEPH CARDENAS) I spoke to hospitalist the [facility] who accepts transfer 7:33 PM 12/01/24 19:36 Patient transferred to the [facility] as planned. Patient transferred at approximately 12:45 AM. There were no issues during my shift. Patient resting comfortably. Vital stable. Portions of this note were created with voice recognition technology. There may be grammatical, spelling, punctuation or sound alike errors 12/02/24 06:13 (GLORIA NAQVI) Medical Desision Making - Discussion of managment Care discussed with:: specialist ([facility] neurologist and [facility]) Reviewed:: Test results Agreed on:: Treatment plan Will see patient: in hospital - Diagnostic Testing Diagnostic test were ordered, analyzed, and reviewed by me: Yes Radiological Interpretation: Reviewed by me - Risk of complications The pt has a mod risk of morbidity or mortality based on: Need for prescription drug management The pt has a high risk of morbidity or mortality based on: Decision regarding hospitilization or escalation of hosp level of care - Departure Departure Disposition: Transfer Critical Care Time: No - Departure Clinical Impression: Dizziness Condition: Stable Referrals: HOSPITAL,'S [Primary Care Provider] - Follow up/PCP as directed
[2024-12-02 00:28] VITALS: RESP 19; O2SAT 95
[2024-12-02 00:45] VITALS: BP 108/59; PULSE 52
== END 2024-12-02 00:45 | disposition short-term general hospital (02) ==
LOC: ED 12:47
DX: R42 Dizziness and giddiness (principal); R51.9 Headache, unspecified; Z79.899 Other long term (current) drug therapy
CPT/HCPCS: 36415; 70450; 71045; 80053; 81001; 83605; 83735; 84484; 85025; 99285; Q3014; A9270-GY